=== PATIENT | female | born 2000 | race Hispanic/Latino ===

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

== ENCOUNTER 2024-08-23 19:59 | Emergency (ER) | payer SELFPAY, OTHER ==
[2024-08-23] MEDS ORDERED: Lidocaine 4% Patch ONE (20:53)
[2024-08-23] MEDS ORDERED: Acetaminophen 500 MG TAB ONE (20:53)
[2024-08-23 21:40] LABS: #Basophils 0.04 10x3/uL (0.0-0.2); #Eosinophils 0.28 10x3/uL (0.0-0.5); #Monocytes 0.56 10x3/uL (0.0-1.1); #Neutrophils 7.75 10x3/uL (1.5-8.4); %Basophils 0.4 % (0.0-2.0); %Eosinophils 2.6 % (0.0-6.0); %Lymphocytes 20.9 % (18.0-47.0); %Monocytes 5.1 % (0.0-10.0); %Neutrophils 70.7 % (40.0-75.0); Hematocrit 36.9 % (34.9-44.5); Hemoglobin 12.4 g/dL (12.0-15.5); Mean Corpuscular HGB CONC 33.6 g/dL (32.0-36.0); Mean Corpuscular Hemoglobin 30.7 pg (27.0-33.0); Mean Corpuscular Volume 91.3 fL (81.6-98.3); Mean Platelet Volume 10.1 fL (7.4-10.4); Platelet Count 249 10x3/uL (150-450); RBC Distribution Width 12.7 % (11.5-14.5); Red Blood Cell (RBC) Count 4.04 10x6/uL (3.90-5.03); White Blood Cell (WBC) Count 10.95 10x3/uL (3.5-10.5)
[2024-08-23 21:41] LABS: Bilirubin Neg (Negative); Blood, Urine Negative (Negative); Clarity Slightly Cloudy (Clear); Glucose, Urine (Dipstick) Normal (Negative); Ketone, Urine Negative (Negative); Leukocyte Negative (Negative); Nitrite Positive (Negative); Protein, Urine (Dipstick) 15 mg/dl (Neg-Trace); Urobilinogen Normal mg/dL (Less than 2); pH, Urine 6.5 (5.0-9.0)
[2024-08-23 21:52] LABS: Bacteria/HPF 2+ HPF (None Seen); CAUTI Indications for Culture Pelvic or flank pain; RBC/HPF None Seen HPF (0-3); Squamous Epithelial 0-3 HPF (0-3); WBC/HPF 0-3 HPF (0-3)
[2024-08-23 21:53] LABS: BHCG - Serum POSITIVE (NEGATIVE); Pregs Control Background? CLEAR/WHITE (CLR/WHITE); Pregs Control Bar Appear? YES (CONTROL BAR)
[2024-08-23 21:53] LABS: Urine Culture Reflex No No
[2024-08-23 21:58] LABS: ALT (SGPT) 26 U/L (Less than 34); AST (SGOT) 21 U/L (11-34); Albumin 4.1 g/dL (3.1-4.5); Alkaline Phosphatase 53 U/L (40-110); Anion Gap 12 mmol/L (10-20); BUN (Urea Nitrogen) 7 mg/dL (7.0-18.7); Bilirubin, Total 0.3 mg/dL (0.3-1.2); Calc. Creatinine Clearance 0 mL/min (70-130); Calcium 8.9 mg/dL (7.8-10.44); Carbon Dioxide 21 mmol/L (22-29); Chloride 107 mmol/L (98-107); Estimated GFR 130; Globulin 3.7 g/dL (2.4-3.5); Glucose 107 mg/dL (70-105); Potassium 3.9 mmol/L (3.5-5.1); Protein, Total 7.8 g/dL (6.0-8.3); Sodium 136 mmol/L (136-145)
== END 2024-08-23 22:29 | disposition home or self-care (01) ==
LOC: CSHERS 19:59
DX: O9A.211 Injury, poisoning and certain other consequences of external causes complicating pregnancy, first trimester (principal); S30.0XXA Contusion of lower back and pelvis, initial encounter; O23.41 Unspecified infection of urinary tract in pregnancy, first trimester; N39.0 Urinary tract infection, site not specified; Z3A.01 Less than 8 weeks gestation of pregnancy; V43.62XA Car passenger injured in collision with other type car in traffic accident, initial encounter; Y93.89 Activity, other specified
CPT/HCPCS: 36415; 80053; 81001; 84703; 85025; 99283

== ENCOUNTER 2025-04-04 15:05 | Day surgery (SDC) | payer BC, OTHER ==
[2025-04-04 15:41] VITALS: BMI 32.4
[2025-04-04 16:57] LABS: Fetal Membranes Rupture No Membranes Rupture (No Rupture)
[2025-04-04] MEDS ORDERED: hydrALAZINE 20 MG/ML VIAL SLOW IVP PRN (17:44)
[2025-04-04] MEDS: Fluconazole 100 MG TAB PO SCH (18:56)
== END 2025-04-04 18:45 | disposition home or self-care (01) ==
LOC: CSHLD/OP 15:05
PROVIDERS: ATTEND Family Medicine
DX: Z03.71 Encounter for suspected problem with amniotic cavity and membrane ruled out (principal); Z3A.39 39 weeks gestation of pregnancy
CPT/HCPCS: 84112; 87480; 87510; 87660; 96360; 99283

== ENCOUNTER 2025-04-05 10:29 | Inpatient (IN) | payer BC, OTHER ==
[2025-04-05] MEDS ORDERED: HYDROcodone/Acetaminophen 5/325 mg Tablet PO PRN (10:44)
[2025-04-05] MEDS ORDERED: Ibuprofen 800 MG TAB PO PRN (10:44)
[2025-04-05] MEDS ORDERED: Carboprost 250 MCG/ML AMP IM PRN (10:44)
[2025-04-05] MEDS ORDERED: Lidocaine 1% (PF) 30 ML VIAL SC PRN (10:44)
[2025-04-05] MEDS ORDERED: hydrALAZINE 20 MG/ML VIAL SLOW IVP PRN ×2 (10:44→12:34)
[2025-04-05] MEDS ORDERED: Tranexamic Acid 1,000 MG/10 ML VIAL IVP PRN (10:44)
[2025-04-05] MEDS ORDERED: Methylergonovine 0.2 MG/ML VIAL IM PRN (10:44)
[2025-04-05] MEDS ORDERED: Diphenoxylate HCl/Atropine Tablet PO PRN ×2 (10:44)
[2025-04-05] MEDS ORDERED: Oxytocin 30 units/NS 500 ML 500 ML IV SCH ×2 (10:45)
[2025-04-05 10:58] LABS: Hematocrit 36.1 % (34.9-44.5); Hemoglobin 11.5 g/dL (12.0-15.5); Mean Corpuscular Hemoglobin 28.4 pg (27.0-33.0); Mean Corpuscular Volume 89.1 fL (81.6-98.3); Platelet Count 262 10x3/uL (150-450); Red Blood Cell (RBC) Count 4.05 10x6/uL (3.90-5.03); White Blood Cell (WBC) Count 11.15 10x3/uL (3.5-10.5)
[2025-04-05 11:32] LABS: Syphilis Antibody Index 0.09 S/CO (<1.00 Non-Reactive)
[2025-04-05 11:34] LABS: Hep B Surf Ag - L&D Non-Reactive S/CO (NonReactive)
[2025-04-05] MEDS ORDERED: Bisacodyl 10 MG SUPP PR PRN (12:34)
[2025-04-05] MEDS ORDERED: Milk Of Magnesia 30 ML UDCUP PO PRN (12:34)
[2025-04-05] MEDS ORDERED: Benzocaine-Menthol 82.5 ML CAN TOP PRN (12:34)
[2025-04-05] MEDS: Ondansetron PF 4 MG/2 ML Vial IVP PRN (12:37)
[2025-04-05] MEDS: Oxytocin 30 units/NS 500 ML 500 ML IV SCH (12:38)
[2025-04-05] MEDS: Ibuprofen 800 MG TAB PO SCH (12:45)
[2025-04-05] MEDS: Boostrix 0.5 ML (Tdap) VIAL (>/=7 yrs of age) IM ONE (15:24)
[2025-04-05] MEDS: Ferrous Sulfate 325 MG TAB PO SCH (18:08)
[2025-04-06] MEDS: Acetaminophen 325 MG TAB PO PRN (11:30)
[2025-04-06 12:56] LABS: #Basophils 0.03 10x3/uL (0.0-0.2); #Eosinophils 0.11 10x3/uL (0.0-0.5); #Monocytes 0.50 10x3/uL (0.0-1.1); #Neutrophils 6.68 10x3/uL (1.5-8.4); %Basophils 0.3 % (0.0-2.0); %Eosinophils 1.1 % (0.0-6.0); %Lymphocytes 26.3 % (18.0-47.0); %Monocytes 5.0 % (0.0-10.0); %Neutrophils 66.7 % (40.0-75.0); Hematocrit 29.3 % (34.9-44.5); Hemoglobin 9.3 g/dL (12.0-15.5); Mean Corpuscular Hemoglobin 28.7 pg (27.0-33.0); Mean Corpuscular Volume 90.4 fL (81.6-98.3); Platelet Count 216 10x3/uL (150-450); Red Blood Cell (RBC) Count 3.24 10x6/uL (3.90-5.03); White Blood Cell (WBC) Count 10.01 10x3/uL (3.5-10.5)
[2025-04-06 15:52] VITALS: TEMP 98.2
[2025-04-06 19:53] VITALS: BP 115/71
== END 2025-04-06 20:30 | disposition home or self-care (01) | DRG 807 ==
LOC: CSHLD/OP 10:29 → CSHLD 10:48 → CSHPP 15:00
PROVIDERS: ADMIT Family Medicine; ATTEND Family Medicine
PROC: 10E0XZZ Delivery of Products of Conception, External Approach (ICD-10-PCS; principal; 2025-04-05)
PROC: 4A1HXCZ Monitoring of Products of Conception, Cardiac Rate, External Approach (ICD-10-PCS; 2025-04-05)
DX: O70.0 First degree perineal laceration during delivery (principal); Z37.0 Single live birth; Z3A.40 40 weeks gestation of pregnancy
CPT/HCPCS: 36415; 84112; 85025; 85027; 86780; 86850; 86900; 86901; 87340; 87480; 87510; 87660; 96360; 99283; 99285; J2590